=== PATIENT | female | born 1945 | race American Indian/Alaskan Native ===

== ENCOUNTER 2018-01-14 20:25 | Inpatient (IN) | payer MEDICARE, OTHER ==
[2018-01-14 20:54] VITALS: BMI 31.9
--- NOTE | 2018-01-14 21:02 | ED PDOC ---
Arrival/HPI - General Chief Complaint: Lower Extremity Problem/Injury Time Seen by Provider: 01/14/18 20:35 Historian: Patient - History of Present Illness Narrative History of Present Illness (Text): 01/14/18 21:01 Estephania Sanchez is a 72 year old female, whose past medical history includes dyslipidemia, hypertension, chronic kidney disease, and chronic lower extremity ulcers, who presents to the Emergency department accompanied by daughter complaining of worsening lower extremity pain. Patient states she has been experiencing bilatera lower extremity pain and swelling for the past few days. Patient notes worsening of her chronic lower extremity ulcers to her bilateral lower extremities, left greater than right. Patient denies any fever, chills, chest pain, shortness of breath, nausea, vomiting, headache, dizziness, or any other complaints. Time/Duration: < week Symptom Onset: Gradual Symptom Course: Worsening Activities at Onset: Light Context: Home Past Medical History - Provider Review Nursing Documentation Reviewed: Yes - Infectious Disease Hx of Infectious Diseases: None - Cardiac Hx Hypertension: Yes Other/Comment: venous stasis - Neurological HX Cerebrovascular Accident: Yes (1994) - Integumentary Hx Dermatological Disorder: Yes (right le leg ulcers) Other/Comment: chronic rle swelling weeping edema leg wounds -- seen by dr shah -- supposed to have appt on 01/15/2018 - Musculoskeletal/Rheumatological Hx Falls: (2 years ago needs right hip replacement) - Genitourinary/Gynecological Hx Incontinence: Yes (urgency from diuretic wears diaper) - Psychiatric Hx Psychophysiologic Disorder: No Hx Anxiety: No Hx Bipolar Disorder: No Hx Depression: No Hx Emotional Abuse: No Hx Hallucinations: No Hx Panic Disorder: No Hx Post Traumatic Stress Disorder: No Hx Psychosis: No Hx Physical Abuse: No Hx Schizophrenia: No Hx Sexual Abuse: No Hx Substance Use: No - Surgical History Hx Orthopedic Surgery: Yes - Anesthesia Hx Anesthesia: Yes Hx Anesthesia Reactions: No Hx Malignant Hyperthermia: No - Suicidal Assessment Feels Threatened In Home Enviroment: No Family/Social History - Physician Review Nursing Documentation Reviewed: Yes Family/Social History: Unknown Family HX Smoking Status: Never Smoked Hx Alcohol Use: No Hx Substance Use: No Allergies/Home Meds Allergies/Adverse Reactions: Allergies Penicillins Allergy (Verified 12/06/15 15:57) ANAPHYLAXIS Home Medications: Home Meds Medication Instructions Recorded Confirmed Losartan [Cozaar] 1 tab PO DAILY 01/14/18 01/14/18 Lovastatin [Altoprev] 1 tab PO HS 01/14/18 01/14/18 amLODIPine [Norvasc] 1 tab PO DAILY 01/14/18 01/14/18 Review of Systems - Physician Review All systems were reviewed & negative as marked: Yes - Review of Systems Constitutional: Normal. absent: Fevers Eyes: Normal ENT: Normal Respiratory: Normal. absent: SOB, Cough Cardiovascular: Normal. absent: Chest Pain Gastrointestinal: Normal. absent: Abdominal Pain, Diarrhea, Nausea, Vomiting Genitourinary Female: Normal. absent: Dysuria, Frequency, Urine Output Changes Musculoskeletal: Normal. absent: Back Pain, Neck Pain Skin: Cellulitis (+worsening lower extremity ulcers). absent: Rash Neurological: Normal. absent: Headache, Dizziness Endocrine: Normal Hemo/Lymphatic: Normal Psychiatric: Normal Physical Exam Vital Signs Reviewed: Yes Temperature: Afebrile Blood Pressure: Normal Pulse: Regular Respiratory Rate: Normal Appearance: Positive for: Well-Appearing, Non-Toxic, Comfortable Pain Distress: None Mental Status: Positive for: Alert and Oriented X 3 - Systems Exam Head: Present: Atraumatic, Normocephalic Pupils: Present: PERRL Extroacular Muscles: Present: EOMI Conjunctiva: Present: Normal Mouth: Present: Moist Mucous Membranes Neck: Present: Normal Range of Motion Respiratory/Chest: Present: Clear to Auscultation, Good Air Exchange. No: Respiratory Distress, Accessory Muscle Use Cardiovascular: Present: Regular Rate and Rhythm, Normal S1, S2. No: Murmurs Abdomen: No: Tenderness, Distention, Peritoneal Signs Back: Present: Normal Inspection Upper Extremity: Present: Normal Inspection. No: Cyanosis, Edema Lower Extremity: Present: Other (Chronic bilateral lower extremity ulcers, left greater than right. Cellulitis to left lower leg.). No: Edema Neurological: Present: GCS=15, CN II-XII Intact, Speech Normal Skin: Present: Warm, Dry, Normal Color. No: Rashes Psychiatric: Present: Alert, Oriented x 3, Normal Insight, Normal Concentration Medical Decision Making ED Course and Treatment: 01/14/18 21:01 Impression: 72 year old female complaining of bilateral lower extremity swelling/pain. Plan: -- Labs, blood cultures -- Tramadol -- Reassess and disposition Prior Visits: Notes and results from previous visits were reviewed. Progress Notes: 01/14/18 23:[address] Clay, who is aware and agrees with plan. Accepts pt in to his service. Pt will go to [facility] observation for left leg cellulitis. 01/15/18 00:38 Reviewed EKG, sinus bradycardia at 58 bpm[address] Non-specific ST/T wave changes. 01/15/18 02:20 Chest X-ray reviewed, shows no acute processes. - Lab Interpretations I have reviewed the lab results: Yes - RAD Interpretation Personnel Monitor: ED Physician - EKG Interpretation Interpreted by ED Physician: Yes Type: 12 lead EKG - Scribe Statement The provider has reviewed the documentation as recorded by the Scribe Kavitha Bliss Provider Scribe Attestation: All medical record entries made by the Scribe were at my direction and personally dictated by me. I have reviewed the chart and agree that the record accurately reflects my personal performance of the history, physical exam, medical decision making, and the department course for this patient. I have also personally directed, reviewed, and agree with the discharge instructions and disposition. Disposition/Present on Arrival - Present on Arrival Any Indicators Present on Arrival: No History of DVT/PE: No History of Uncontrolled Diabetes: No Urinary Catheter: No History of Decub. Ulcer: No History Surgical Site Infection Following: None - Disposition Have Diagnosis and Disposition been Completed?: Yes Diagnosis: Cellulitis of left anterior lower leg Disposition: HOSPITALIZED Disposition Time: 23:00 Condition: GOOD
[2018-01-14] MEDS ORDERED: TraMADol/Apap 37.5/325 mg Tab PO STA (21:05)
[2018-01-14 22:40] LABS: BASO # 0.02 K/mm3 (0.0-2.0); BASO % 0.3 % (0.0-3.0); EOS # 0.1 (0.0-0.7); EOS % 1.3 % (1.5-5.0); GRAN # 5.43 (1.4-6.5); GRAN % 68.6 % (50.0-68.0); HEMOGLOBIN 10.2 g/dL (12.0-16.0); LYMPH # 1.6 (1.2-3.4); LYMPH % 20.7 % (22.0-35.0); MEAN CELL VOLUME 78.3 fl (80.0-105.0); MEAN CORPUSCULAR HEMOGLOBIN 25.8 pg (25.0-35.0); MEAN CORPUSCULAR HGB CONC 32.9 g/dl (31.0-37.0); MEAN PLATELET VOLUME 9.3 fl (7.0-11.0); MONO # 0.7 (0.1-0.6); MONO % 9.1 % (1.0-6.0); RBC 3.96 10^6/uL (3.5-6.1); RED CELL DISTRIBUTION WIDTH 15.2 % (11.5-14.5); WHITE BLOOD COUNT 7.9 10^3/ul (4.5-11.0)
[2018-01-14 22:43] LABS: ALB/GLOB RATIO 0.9 (1.1-1.8); ALBUMIN 3.8 g/dL (3.0-4.8)
[2018-01-15] MEDS ORDERED: Vancomycin 1gm in NS 250ml 1 GM/250 ML BAG IVPB STA (00:15)
[2018-01-15] MEDS ORDERED: Pneumococcal 23-Valent Vaccine IM ONE (08:19)
[2018-01-15] MEDS ORDERED: Influenza Vaccine 60 mcg/0.5 mL SYR (4YR UP) IM ONE (08:19)
[2018-01-15] MEDS: Sodium Chloride 0.45% 1,000 ML IV SCH (08:46)
[2018-01-15 09:49] LABS: ALB/GLOB RATIO 0.9 (1.1-1.8); ALBUMIN 3.5 g/dL (3.0-4.8); CALCIUM 9.6 mg/dL (8.4-10.5)
--- NOTE | 2018-01-15 10:12 | RAD ---
Date of service: 01/15/2018 HISTORY: admit COMPARISON: No prior. FINDINGS: 11/07/2014 LUNGS: The lungs are well inflated and clear. PLEURA: No pleural effusions or pneumothorax. CARDIOVASCULAR: The heart is normal in size. No aortic atherosclerotic calcification present. OSSEOUS STRUCTURES: Within normal limits for the patient's age. VISUALIZED UPPER ABDOMEN: Normal. OTHER FINDINGS: None. IMPRESSION: No active pulmonary disease.
[2018-01-15] MEDS ORDERED: Clindamycin 600mg/50ml D5W 600 MG/50 ML VIAL IVPB SCH (10:30)
--- NOTE | 2018-01-15 11:00 | CARD ---
APPROVED REPORT Date of service: 01/15/2018 EKG Measurement Heart [id number] <Conclusion> Sinus bradycardia Septal infarct, old LVH NSSTW changes No change
[2018-01-15] MEDS: TraMADol/Apap 37.5/325 mg Tab PO PRN ×2 (11:42→21:26)
--- NOTE | 2018-01-15 12:51 | CP.PCM.CON ---
History of Present Illness - History of Present Illness History of Present Illness: Podiatry consult note for Dr. Aguilar/Dr Babin 72 year old female, whose past medical history includes dyslipidemia, hypertension, chronic kidney disease, and chronic lower extremity ulcers, see at bedside worsening lower extremity pain and ulcers . Patient states she has been experiencing bilateral lower extremity pain and swelling for the past few days. Patient notes worsening of her chronic lower extremity ulcers to her bilateral lower extremities, left greater than right. Patient denies any fever, chills, chest pain, shortness of breath, nausea, vomiting, headache, dizziness, or any other complaints. Past Patient History - Infectious Disease Hx of Infectious Diseases: None - Past Social History Smoking Status: Never Smoked - CARDIAC Hx Hypertension: Yes Other/Comment: venous stasis - NEUROLOGICAL HX Cerebrovascular Accident: Yes (1994) - INTEGUMENTARY Hx Dermatological Problems: Yes (right le leg ulcers) Other/Comment: chronic rle swelling weeping edema leg wounds -- seen by dr aguilar -- supposed to have appt on 01/15/2018 - MUSCULOSKELETAL/RHEUMATOLOGICAL Hx Falls: No - GENITOURINARY/GYNECOLOGICAL Hx Incontinence: Yes (urgency from diuretic wears diaper) - PSYCHIATRIC Hx Psychophysiologic Disorder: No Hx Anxiety: No Hx Bipolar Disorder: No Hx Depression: No Hx Emotional Abuse: No Hx Hallucinations: No Hx Panic Symptoms: No Hx Post Traumatic Stress Disorder: No Hx Psychosis: No Hx Physical Abuse: No Hx Schizophrenia: No Hx Sexual Abuse: No Hx Substance Use: No - SURGICAL HISTORY Hx Orthopedic Surgery: Yes - ANESTHESIA Hx Anesthesia: Yes Hx Anesthesia Reactions: No Hx Malignant Hyperthermia: No Meds Allergies/Adverse Reactions: Allergies Allergy/AdvReac Type Severity Reaction Status Date / Time Penicillins Allergy ANAPHYLAXIS Verified 12/06/15 15:57 - Medications Medications: Current Medications Acetaminophen (Tylenol 325mg Tab) 650 mg PO Q4H PRN PRN Reason: Pain, Mild (1-3) Amlodipine Besylate (Norvasc) 10 mg PO DAILY REMA Last Admin: 01/15/18 09:23 Dose: 10 mg Doxycycline Hyclate (Doryx) 100 mg PO Q12 REMA; Protocol Stop: 01/24/18 22:01 Furosemide (Lasix) 20 mg IVP DAILY REMA Last Admin: 01/15/18 11:39 Dose: 20 mg Sodium Chloride (Sodium Chloride 0.45%) 1,000 mls @ 40 mls/hr IV .Q24H REMA Last Admin: 01/15/18 08:46 Dose: 40 mls/hr Meropenem (Merrem Iv 1 Gm Premix) 1 gm in 50 mls @ 12.5 mls/hr IVPB Q12 REMA; Protocol Stop: 01/24/18 22:01 Losartan Potassium (Cozaar) 25 mg PO DAILY REMA Last Admin: 01/15/18 09:20 Dose: 25 mg Non-Formulary Medication (Lovastatin [Altoprev]) 1 tab PO HS REMA Tramadol/Acetaminophen (Ultracet 37.5/325 Mg) 1 tab PO Q6H PRN PRN Reason: Pain, moderate (4-7) Last Admin: 01/15/18 11:42 Dose: 1 tab Physical Exam - Constitutional Appears: Well, Non-toxic, No Acute Distress - Head Exam Head Exam: ATRAUMATIC, NORMOCEPHALIC - Extremities Exam Additional comments: Bilateral lower extremity exam: Vascular: dp/pt pulses are palpable b/l, CFT <3 secs x10, TG warm to warm, pitting edema pretibial +2, no erythema noted derm: left: ulcer noted on the medial aspect of the distal leg with firogranular base, no malodor, moderate active serous drainage, no probe to bone or tendon, no tracking or tunneling noted, no clinical signs of infection right: ulcer noted on the medial aspect of the distal leg with fibrogranular base, no malodor, mild active serous drainage, no probe to bone or tendon, no clical signs of infection no other open lesions noted neuro: grossly intact ortho: pain on palpation to the lower extremity L>R Results - Vital Signs Recent Vital Signs: Last Vital Signs Temp 97.6 F 01/15/18 06:00 Pulse 60 01/15/18 09:20 Resp 18 01/15/18 06:00 BP 144/68 01/15/18 11:39 Pulse Ox 99 01/15/18 06:00 - Labs Result Diagrams: 01/14/18 22:05 01/15/18 09:00 Labs: Laboratory Results - last 24 hr 01/14/18 01/14/18 01/15/18 22:05 22:05 09:00 WBC 7.9 D RBC 3.96 Hgb 10.2 L Hct 31.0 L MCV 78.3 L D MCH 25.8 MCHC 32.9 RDW 15.2 H Plt Count 356 MPV 9.3 Gran % 68.6 H Lymph % (Auto) 20.7 L Bartholomew % (Auto) 9.1 H Eos % (Auto) 1.3 L Baso % (Auto) 0.3 Gran # 5.43 Lymph # (Auto) 1.6 Bartholomew # (Auto) 0.7 H Eos # (Auto) 0.1 Baso # (Auto) 0.02 Sodium 139 140 Potassium 4.0 4.2 Chloride 104 106 Carbon Dioxide 25 26 Anion Gap 14 11 BUN 39 H 28 H Creatinine 2.0 H 1.5 H Est GFR ( Amer) 29 41 Est GFR (Non-Af Amer) 24 34 Random Glucose 113 H 135 H Calcium 10.0 9.6 Total Bilirubin 0.4 0.5 AST 48 H 35 ALT 19 14 Alkaline Phosphatase 155 H 117 Total Protein 7.9 7.4 Albumin 3.8 3.5 Globulin 4.1 4.0 Albumin/Globulin Ratio 0.9 L 0.9 L Assessment & Plan - Assessment and Plan (Free Text) Assessment: 72 yo female seen at bedside for venous insufficiency and weeping ulcers on bilateral legs. Plan: patient seen and evaluated alongside Dr. Aguilar chart, labs and vitals reviewed; afebrile and absent leukocytosis bilateral legs dressed with xeroform, DSD and MADALYN wraps with moderate compression Patient to keep b/l LE elevated at all times Venous ultrasound ordered; no DVT arterial ultrasound ordered; pending Wound cultures taken from the left lower extremity ID recs appreciated Thank you for the consult multipodus boots ordered podiatry will continue to monitor the patient while in house
--- NOTE | 2018-01-15 15:01 | US ---
PROCEDURE: Lower extremity NILDA exam HISTORY: Peripheral vascular disease with pain and ulceration PHYSICIAN(S): Cortes Tian MD. FINDINGS: The resting NILDA's are normal: right, 1.11and left, 1.04. The brachial systolic pressures are symmetric. The low thigh pressures and waveforms are relatively normal. The calf PVR waveforms augment normally. No significant gradients are noted across the thighs. The ankle and metatarsal waveforms are relatively normal and symmetric. No significant pressure gradients are noted across the lower legs. IMPRESSION: 1. Relatively normal NILDA and PVR examination at rest.
[2018-01-15] MEDS: LOVASTATIN PO SCH (21:20)
[2018-01-15] MEDS: Meropenem IV 1 gm in NS 1 GM/50 ML BAG IVPB SCH (21:20)
[2018-01-16 07:09] LABS: HEMOGLOBIN 9.5 g/dL (12.0-16.0); MEAN CELL VOLUME 79.6 fl (80.0-105.0); MEAN CORPUSCULAR HEMOGLOBIN 24.9 pg (25.0-35.0); MEAN CORPUSCULAR HGB CONC 31.3 g/dl (31.0-37.0); MEAN PLATELET VOLUME 8.9 fl (7.0-11.0); RBC 3.82 10^6/uL (3.5-6.1); RED CELL DISTRIBUTION WIDTH 15.6 % (11.5-14.5); WHITE BLOOD COUNT 6.8 10^3/uL (4.5-11.0)
[2018-01-16 07:54] LABS: ALB/GLOB RATIO 0.8 (1.1-1.8); ALBUMIN 3.2 g/dL (3.0-4.8); CALCIUM 9.4 mg/dL (8.4-10.5)
--- NOTE | 2018-01-16 09:03 | CON ---
DATE: 01/15/2018 CHIEF COMPLAINT: Left ankle erythema and ulcer times several days. HISTORY OF PRESENT ILLNESS This is a 72-year-old female with past medical history of high cholesterol, coronary artery disease, kidney disease, chronic lower extremity ulcers who was admitted with diagnosis of left leg cellulitis. The patient also had a cerebrovascular accident in 1994, hyperlipidemia, and hypertension. PAST MEDICAL HISTORY: Significant for hypertension, high cholesterol, kidney disease, cerebrovascular accident, and chronic lower extremity ulcers. PAST SURGICAL HISTORY: Significant for orthopedic surgery. ALLERGIES: THE PATIENT IS ALLERGIC TO PENICILLIN, TYPE OF ALLERGY IS NOT CLEAR. MEDICATIONS AT HOME: Include lovastatin, amlodipine, losartan. REVIEW OF SYSTEM: Reveals 12-point review systems is performed. No fever, no chills. There is mild shortness of breath. No cough. No hemoptysis. No abdominal pain, diarrhea, or constipation. No dysuria or frequency. No headaches and no blurred vision. PHYSICAL EXAMINATION: VITAL SIGNS: Temperature is 98, blood pressure is 150/70, respiratory rate of 18, heart rate of 56. HEENT: Unremarkable. NECK: Supple. LUNGS: Decreased breath sounds. HEART: Normal S1, S2. ABDOMEN: Soft and nontender. No organomegaly. No rebound. No guarding. No masses. EXTREMITIES: On examination of the leg, there is significant ulcer and erythema, purulent discharge. LABORATORY EXAMINATION: Reveals a white count of 7.9, hemoglobin of 10, platelets of 356. BUN of 29, creatinine of 2. The patient has had creatinine of 2 in 2014. Alk phos is elevated. Microbiology from previous admissions shows ESBL, E. coli, and corynebacterium from the left leg; and sensitive E. Coli. The ESBL was from 04/2017. Prior to that, she had sensitive E. Coli, and she also had pseudomonas, sensitive to Cipro and cefepime in 2016. The patient had a chest x-ray which is negative. History and physical examination is not available but the emergency room chart is available. ASSESSMENT AND PLAN: This is a 72-year-old female with hypertension, and cerebrovascular accident in 1994, high cholesterol, kidney disease presenting with a left ankle cellulitis with acute kidney injury. THE PATIENT IS ALLERGIC TO PENICILLIN. We will treat the patient with meropenem. Type of penicillin allergy is not type 1, she is not quite sure what type she has. She believes that she had diarrhea. We will start 1 g intravenous every 12 hours of meropenem for methicillin-resistant Staphylococcus aureus coverage or hesitant to use vancomycin because of the creatinine of 2, unable to use Zyvox because of the use of tramadol for pain. The patient was not on tramadol at home. We will add p.o. doxycycline at this time for emergency coverage. Wound cultures pending. Should have imaging to rule out underlying osteomyelitis. Should have sed rate, C-reactive protein, wound culture, imaging and arterial studies. She should be placed on an Extended Spectrum Beta-Lactamase precautions. Boogie Patel MD
--- NOTE | 2018-01-16 09:21 | HP ---
HISTORY OF PRESENT ILLNESS: I was called to the emergency room last night to admit Estephania Sanchez to the hospital. She is a very sweet female, 72 years old. PAST MEDICAL HISTORY: Dyslipidemia, hypertension, chronic kidney disease, chronic lower extremity ulcers for which she has been seeing a different mechatronics technologist in the outpatient for many years. She wanted a different mechatronics technologist and she tells me the ulcers are getting worse on both legs and also oozing and has much more pain, difficult for her to walk. She also has some swelling in the legs and they looked to me a little bit inflamed with oozing into the bandages. This is a worsening of a failed outpatient treatment with recent care by the mechatronics technologist. She has venous stasis, hypertension, she had CVA in 1994, she had right and left lower extremity leg ulcers, they are weeping and they are oozing and now, she wants to see Dr. Agiular. She has an appointment actually for today, but now she is in the hospital. Two years ago she had a right hip replacement, she has urgency, she wears a diaper, that is because of the diuretic. FAMILY HISTORY: Unknown family history. SOCIAL HISTORY: Never smoked. No alcohol. No drugs. ALLERGIES: SHE HAS ALLERGIES TO PENICILLIN. MEDICATIONS: She is on Cozaar, lovastatin and Norvasc. She has hypertension, high cholesterol. REVIEW OF SYSTEMS: No fevers. No acute vision or hearing changes. No shortness of breath or cough. No chest pain or palpitations. No nausea, vomiting, constipation or diarrhea. No abdominal pain. She eats well as well. She has increasing urination from the diuresis from the edema. I do not see water pill on her list and the legs are little puffy, I will add something. No muscular pain in the back of leg, but both the legs are very tender. It starts with any motion, even of the bandages to look underneath, very bad pain in both the lower extremities. She has cellulitis, worsening lower extremity ulcers. She was on antibiotics and treatment on the outpatient it did not work, it is getting worse. She was supposed to see Dr. Aguilar today in the outpatient, will call in to see her in the hospital. No headaches or dizziness. No anxiety or depression. PHYSICAL EXAMINATION VITAL SIGNS: She has a 98.1 temperature, 157/80 blood pressure, 67 pulse, 18 respiratory rate and 98% O2 sat on room air. HEENT: Her head is atraumatic and normocephalic. Extraocular muscles are intact. Pupils equal reactive to light. Throat is moist. GENERAL: She is well appearing, nontoxic, comfortable in bed. When the legs are touched, she is very miserable and in pain. Alert and oriented x3. NECK: Supple. HEART: Regular rate. Normal S1, S2. LUNGS: Decreased breath sounds. Poor effort, but clear to auscultation. No wheezes, rhonchi or rales. ABDOMEN: Soft and nontender. Positive bowel sounds. No guarding. No rebound. EXTREMITIES: There is some edema of the lower extremity trace to a +1 in the ankles. Also both lower extremity ulcers are bilateral oozing into the bandages. If you touch the bandage, she is extremely painful. Just the touch of the leg, she is very painful. It has gotten worse, she said over the past week despite treatment. NEUROLOGIC: Cranial nerves II through XII grossly intact. Speech is normal. Skin is poor in both lower extremities with ulcers and oozing. Alert and oriented x3. LYMPHATICS: Thyroid midline. No palpable appreciable lymphadenopathy. LABORATORY DATA: She had a bunch of tests. She has a 139 sodium, potassium 4, BUN 39, creatinine 2.0. I will put on some IV fluids, although she does have some edema. From time to time, I will give her a little bit of hydrochlorothiazide or Lasix. Sugar was 113, total bili is 0.4, AST is 48, ALT is 19, alk phos 155, total protein 7.9. White count 7.9, hemoglobin 10.2 and 31 hematocrit with 356 platelets. There is a chest x-ray pending. She will have consults with Infectious Disease and podiatry. She should be on her medications and IV fluids for the kidney function, I will give her little bit of Lasix IV 20 mg daily for the swelling and she has a worsening leg ulcers and cellulitis with failed outpatient treatment and we will see what Infectious Disease and Podiatry has to say today. I am going to change her to an inpatient. She was put in as an and I do not foresee her being able to be discharged in 24 hours. She will get a dose of vancomycin and she was given Ultracet for pain, I will continue that. She had a dose of Lasix 20 once in the emergency room, I will continue that also. Trevon Clay DO MTDD
--- NOTE | 2018-01-16 10:19 | PN ---
DATE: 01/16/2018 SUBJECTIVE: I saw her resting comfortably in bed. She is in isolation for ESBL. Her legs are bandaged nicely. She tells me she is feeling a little bit better overall. She has a little bit of an appetite. I would like to get her out of bed to chair, she understands that. She is currently on Cozaar, Doryx, Lasix, lovastatin, Merrem IV, Norvasc, IV fluids, Tylenol, and Ultracet for pain. PHYSICAL EXAMINATION: VITAL SIGNS: She has a 98.1 temp; 57 pulse; 160/68 blood pressure, little high, she was 146/68 yesterday, we will keep an eye on that; 18 respiratory rate; 96% on room air. HEENT: Head is atraumatic, normocephalic. HEART: Regular rate. LUNGS: Clear to auscultation. ABDOMEN: Soft, nontender. Positive bowel sounds. EXTREMITIES: Both are bandaged. She tells me she is feeling better, which is nice. LABORATORY DATA: She has a 6.8 white count, 9.5 hemoglobin, 30.4 hematocrit with a 329 platelets. Sodium 140; potassium is 4; BUN is 24 and creatinine 1.4, better than when she came in, she had 39 and 2, it is down to 24 and 1.4, so I think the acute kidney injury is improving; GFR is up to 37; sugar is 82, better; calcium is at 9.4. Total bili is 0.4, AST is 33, ALT is 20, alk phos 114, total protein is 6.9. ASSESSMENT AND PLAN: We will continue with aggressive treatment and care, skin care, podiatry care, infectious disease, antibiotics. We will check her labs tomorrow, get her out of bed to chair. She has got bilateral leg wounds with oozing. Trevon Clay DO
--- NOTE | 2018-01-16 10:43 | CP.PCM.PN ---
<Lisa Jean - Last Filed: 01/16/18 12:21> Subjective - Date & Time of Evaluation Date of Evaluation: 01/16/18 Time of Evaluation: 10:40 - Subjective Subjective: Podiatry progress note for Dr. Aguilar/Dr Babin 72 year old female, whose past medical history includes dyslipidemia, hypertension, chronic kidney disease, and chronic lower extremity ulcers, seen at bedside worsening lower extremity pain and ulcers . Patient states she has been experiencing bilateral lower extremity pain and swelling for the past few days. patient states the pain is a lot better today. States the left dressing was just changed because she felt like it was too tight. Patient denies any fever, chills, chest pain, shortness of breath, nausea, vomiting, headache, dizziness, or any other complaints. Objective - Vital Signs/Intake and Output Vital Signs (last 24 hours): Temp Pulse Resp BP Pulse Ox 98.1 F 57 L 18 160/68 H 96 01/16/18 06:00 01/16/18 06:00 01/16/18 06:00 01/16/18 06:00 01/16/18 06:00 Intake and Output: 01/16/18 01/16/18 06:59 18:59 Intake Total 480 Balance 480 - Medications Medications: Current Medications Acetaminophen (Tylenol 325mg Tab) 650 mg PO Q4H PRN PRN Reason: Pain, Mild (1-3) Amlodipine Besylate (Norvasc) 10 mg PO DAILY [facility] Last Admin: 01/15/18 09:23 Dose: 10 mg Doxycycline Hyclate (Doryx) 100 mg PO Q12 [facility]; Protocol Stop: 01/24/18 22:01 Last Admin: 01/15/18 21:19 Dose: 100 mg Furosemide (Lasix) 20 mg IVP DAILY [facility] Last Admin: 01/15/18 11:39 Dose: 20 mg Sodium Chloride (Sodium Chloride 0.45%) 1,000 mls @ 40 mls/hr IV .Q24H [facility] Last Admin: 01/15/18 08:46 Dose: 40 mls/hr Meropenem (Merrem Iv 1 Gm Premix) 1 gm in 50 mls @ 12.5 mls/hr IVPB Q12 [facility]; Protocol Stop: 01/24/18 22:01 Last Admin: 01/15/18 21:20 Dose: 12.5 mls/hr Losartan Potassium (Cozaar) 25 mg PO DAILY [facility] Last Admin: 01/15/18 09:20 Dose: 25 mg Non-Formulary Medication (Lovastatin [Altoprev]) 1 tab PO HS [facility] Last Admin: 01/15/18 21:20 Dose: Not Given Oxycodone/Acetaminophen (Percocet 5/325 Mg Tab) 1 tab PO Q6H PRN PRN Reason: Pain, severe (8-10) Stop: 01/19/18 09:50 - Labs Labs: 01/16/18 06:30 01/16/18 06:30 - Constitutional Appears: Well, Non-toxic - Extremities Exam Additional comments: Dressing clean, dry and intact from previous note: Bilateral lower extremity exam: Vascular: dp/pt pulses are palpable b/l, CFT <3 secs x10, TG warm to warm, pitting edema pretibial +2, no erythema noted derm: left: ulcer noted on the medial aspect of the distal leg with firogranular base, no malodor, moderate active serous drainage, no probe to bone or tendon, no tracking or tunneling noted, no clinical signs of infection right: ulcer noted on the medial aspect of the distal leg with fibrogranular base, no malodor, mild active serous drainage, no probe to bone or tendon, no clical signs of infection no other open lesions noted neuro: grossly intact ortho: pain on palpation to the lower extremity L>R - Neurological Exam Neurological Exam: Alert, Awake, Oriented x3 - Psychiatric Exam Psychiatric exam: Normal Affect - Skin Skin Exam: Normal Color Assessment and Plan - Assessment and Plan (Free Text) Assessment: 72 yo female seen at bedside for venous insufficiency and weeping ulcers on bilateral legs. Plan: patient seen and evaluated alongside Dr. Aguilar chart, labs and vitals reviewed; afebrile and absent leukocytosis bilateral legs to be dressed with xeroform, DSD and MADALYN wraps with moderate compression Patient to keep b/l LE elevated at all times Venous ultrasound ordered; no DVT arterial ultrasound ordered; NILDA/PVR normal at rest Wound cultures taken from the left lower extremity; gram negative peri ID recs appreciated multipodus boots ordered podiatry will continue to monitor the patient while in house <Volodymyr Babin - Last Filed: 01/16/18 15:10> Objective - Vital Signs/Intake and Output Vital Signs (last 24 hours): Temp Pulse Resp BP Pulse Ox 97.9 F 52 L 18 128/61 97 01/16/18 14:00 01/16/18 14:00 01/16/18 14:00 01/16/18 14:00 01/16/18 14:00 Intake and Output: 01/16/18 01/16/18 06:59 18:59 Intake Total 480 Balance 480 - Medications Medications: Current Medications Acetaminophen (Tylenol 325mg Tab) 650 mg PO Q4H PRN PRN Reason: Pain, Mild (1-3) Amlodipine Besylate (Norvasc) 10 mg PO DAILY [facility] Last Admin: 01/16/18 11:05 Dose: 10 mg Doxycycline Hyclate (Doryx) 100 mg PO Q12 [facility]; Protocol Stop: 01/24/18 22:01 Last Admin: 01/16/18 11:05 Dose: 100 mg Furosemide (Lasix) 20 mg IVP DAILY [facility] Last Admin: 01/16/18 11:06 Dose: 20 mg Sodium Chloride (Sodium Chloride 0.45%) 1,000 mls @ 40 mls/hr IV .Q24H [facility] Last Admin: 01/16/18 11:44 Dose: 40 mls/hr Meropenem (Merrem Iv 1 Gm Premix) 1 gm in 50 mls @ 12.5 mls/hr IVPB Q12 [facility]; Protocol Stop: 01/24/18 22:01 Last Admin: 01/16/18 11:04 Dose: 12.5 mls/hr Losartan Potassium (Cozaar) 25 mg PO DAILY [facility] Last Admin: 01/16/18 11:06 Dose: Not Given Non-Formulary Medication (Lovastatin [Altoprev]) 1 tab PO HS [facility] Last Admin: 01/15/18 21:20 Dose: Not Given Oxycodone/Acetaminophen (Percocet 5/325 Mg Tab) 1 tab PO Q6H PRN PRN Reason: Pain, severe (8-10) Stop: 01/19/18 09:50 Last Admin: 01/16/18 11:07 Dose: 1 tab - Labs Labs: 01/16/18 06:30 01/16/18 06:30 Attending/Attestation - Attestation I have personally seen and examined this patient.: Yes I have fully participated in the care of the patient.: Yes I have reviewed all pertinent clinical information, including history, physical exam and plan: Yes
[2018-01-16] MEDS: Meropenem IV 1 gm in NS 1 GM/50 ML BAG IVPB SCH ×2 (11:04→22:21)
[2018-01-16] MEDS: Oxycodone/Acetaminophen 5/325 mg Tab PO PRN ×2 (11:07→20:44)
[2018-01-16] MEDS: Sodium Chloride 0.45% 1,000 ML IV SCH (11:44)
--- NOTE | 2018-01-16 16:16 | PN ---
DATE: 01/16/2018 SUBJECTIVE: The patient is seen earlier this morning. She is still complaining of pain in her extremity. No fevers. No chills. Otherwise, she sedates on a vent from night. PHYSICAL EXAMINATION: VITAL SIGNS: Temperature is 98, blood pressure 160/80, respiratory rate 18. HEENT: Unremarkable. NECK: Supple. LUNGS: Have decreased breath sounds. HEART: Normal S1 and S2. ABDOMEN: Soft, nontender. LABORATORY DATA: White count 6.8, hemoglobin 9, platelets 329. BUN 24, creatinine down to 1.4. Microbiology reveals a gram-negative peri and leg culture with light growth, but no organism seen on the gram stain. The blood cultures are negative 24 hours. No gram stain available at this time. ASSESSMENT AND PLAN: A 72-year-old female with hypertension, cerebrovascular accident in 1994, high cholesterol, kidney disease with left ankle cellulitis and acute kidney injury with ALLERGY TO PENICILLIN with a gram-negative peri, left ankle cellulitis, on meropenem at this time and doxycycline, awaiting for identification sensitivity, check on the AVR results and relatively normal NILDA and tolerate MRI, order a bone scan to rule out underlying osteomyelitis. Boogie Patel MD
[2018-01-16] MEDS: LOVASTATIN PO SCH (22:21)
[2018-01-17 07:51] LABS: HEMOGLOBIN 10.4 g/dL (12.0-16.0); MEAN CELL VOLUME 78.8 fl (80.0-105.0); MEAN CORPUSCULAR HGB CONC 31.7 g/dl (31.0-37.0); RBC 4.16 10^6/uL (3.5-6.1); RED CELL DISTRIBUTION WIDTH 15.2 % (11.5-14.5); WHITE BLOOD COUNT 5.8 10^3/uL (4.5-11.0)
[2018-01-17 08:47] LABS: ALB/GLOB RATIO 0.9 (1.1-1.8); ALBUMIN 3.3 g/dL (3.0-4.8); CALCIUM 9.8 mg/dL (8.4-10.5)
--- NOTE | 2018-01-17 08:50 | CP.PCM.PN ---
<Mamadou Parikh - Last Filed: 01/17/18 08:48> Subjective - Date & Time of Evaluation Date of Evaluation: 01/17/18 Time of Evaluation: 08:48 - Subjective Subjective: Podiatry progress note for Dr. Aguilar/Dr Babin 72 year old female, whose past medical history includes dyslipidemia, hypertension, chronic kidney disease, and chronic lower extremity ulcers, seen at bedside worsening lower extremity pain and ulcers . Patient states she has been experiencing bilateral lower extremity pain and swelling for the past few days. patient states the pain is a lot better today. States left leg is much more sensitive than right and she hasn't had problems with dressing as was laid down gently when last changed. Patient denies any fever, chills, chest pain, shortness of breath, nausea, vomiting, headache, dizziness, or any other complaints. Objective - Vital Signs/Intake and Output Vital Signs (last 24 hours): Temp Pulse Resp BP Pulse Ox 97.6 F 58 L 18 147/70 98 01/17/18 06:00 01/17/18 06:00 01/17/18 06:00 01/17/18 06:00 01/17/18 06:00 Intake and Output: 01/17/18 01/17/18 06:59 18:59 Intake Total 1460 Balance 1460 - Medications Medications: Current Medications Acetaminophen (Tylenol 325mg Tab) 650 mg PO Q4H PRN PRN Reason: Pain, Mild (1-3) Amlodipine Besylate (Norvasc) 10 mg PO DAILY [facility] Last Admin: 01/16/18 11:05 Dose: 10 mg Doxycycline Hyclate (Doryx) 100 mg PO Q12 [facility]; Protocol Stop: 01/24/18 22:01 Last Admin: 01/16/18 22:22 Dose: 100 mg Furosemide (Lasix) 20 mg IVP DAILY [facility] Last Admin: 01/16/18 11:06 Dose: 20 mg Sodium Chloride (Sodium Chloride 0.45%) 1,000 mls @ 40 mls/hr IV .Q24H [facility] Last Admin: 01/16/18 11:44 Dose: 40 mls/hr Meropenem (Merrem Iv 1 Gm Premix) 1 gm in 50 mls @ 12.5 mls/hr IVPB Q12 [facility]; Protocol Stop: 01/24/18 22:01 Last Admin: 01/16/18 22:21 Dose: 12.5 mls/hr Losartan Potassium (Cozaar) 25 mg PO DAILY [facility] Last Admin: 01/16/18 11:06 Dose: Not Given Non-Formulary Medication (Lovastatin [Altoprev]) 1 tab PO HS [facility] Last Admin: 01/16/18 22:21 Dose: Not Given Oxycodone/Acetaminophen (Percocet 5/325 Mg Tab) 1 tab PO Q6H PRN PRN Reason: Pain, severe (8-10) Stop: 01/19/18 09:50 Last Admin: 01/16/18 20:44 Dose: 1 tab - Labs Labs: 01/17/18 06:45 01/17/18 06:45 - Constitutional Appears: Well, Non-toxic, No Acute Distress - Head Exam Head Exam: ATRAUMATIC, NORMOCEPHALIC - Extremities Exam Additional comments: Bilateral lower extremity exam: Vascular: dp/pt pulses are palpable b/l, CFT <3 secs x10, TG warm to warm, pitting edema pretibial +2, no erythema noted derm: left: ulcer noted on the medial aspect of the distal leg with firogranular base, no malodor, moderate active serous drainage, no probe to bone or tendon, no tracking or tunneling noted, no clinical signs of infection right: ulcer noted on the medial aspect of the distal leg with fibrogranular base, no malodor, mild active serous drainage, no probe to bone or tendon, no clical signs of infection no other open lesions noted neuro: grossly intact ortho: pain on palpation to the lower extremity L>R - Neurological Exam Neurological Exam: Alert, Awake, Oriented x3 - Psychiatric Exam Psychiatric exam: Normal Affect, Normal Mood Assessment and Plan - Assessment and Plan (Free Text) Assessment: 72 yo female seen at bedside for venous insufficiency and weeping ulcers on bilateral legs. Plan: patient seen and evaluated at bedside with Dr. Babin chart, labs and vitals reviewed; afebrile and absent leukocytosis bilateral legs to be dressed with xeroform, DSD and MADALYN wraps with moderate compression Patient to keep b/l LE elevated at all times Venous ultrasound ordered; no DVT arterial ultrasound ordered; NILDA/PVR normal at rest Wound cultures taken from the left lower extremity; gram negative peri ID recs appreciated multipodus boots ordered podiatry will continue to monitor the patient while in house <Volodymyr Babin - Last Filed: 01/20/18 12:19> Objective - Vital Signs/Intake and Output Vital Signs (last 24 hours): Temp Pulse Resp BP Pulse Ox 97.5 F L 60 18 156/62 H 97 01/19/18 08:04 01/19/18 11:03 01/19/18 08:04 01/19/18 11:03 01/19/18 08:04 - Labs Labs: 01/19/18 06:15 01/19/18 06:15 Attending/Attestation - Attestation I have personally seen and examined this patient.: Yes I have fully participated in the care of the patient.: Yes I have reviewed all pertinent clinical information, including history, physical exam and plan: Yes
[2018-01-17] MEDS: Meropenem IV 1 gm in NS 1 GM/50 ML BAG IVPB SCH ×2 (10:40→21:38)
--- NOTE | 2018-01-17 12:12 | PN ---
DATE: 01/17/2018 SUBJECTIVE: The patient is in bed in no acute distress, nontoxic. PHYSICAL EXAMINATION: VITAL SIGNS: Temperature is 97, blood pressure is 140/70, respiratory rate of 18. HEENT: Examination of HEENT is unremarkable. NECK: Supple. LUNGS: Have decreased breath sounds. HEART: Normal S1, S2. ABDOMEN: Soft. LABORATORY EXAMINATION: Reveals a white count is 5.8, hemoglobin of 10, platelets of 331, BUN of 25, creatinine of 1.3. Microbiology reveals leg culture is Pseudomonas aeruginosa, sensitive to amikacin, sensitive to cefepime and meropenem and Zosyn and resistant to Cipro. The patient had an ultrasound which is normal ABIs and at rest, has arterial Dopplers and review of orders reveals the patient's MRIs have been ordered and pending and the patient is currently on meropenem. ASSESSMENT AND PLAN: A 72-year-old female with hypertension, cerebrovascular accident in 1994, high cholesterol, kidney disease with Pseudomonas left ankle cellulitis and currently on meropenem day #3. If the MRI is negative for osteomyelitis, would complete 5-7 days. If the MRI is positive, obviously will need 4-6 weeks of antibiotics. We will order a sed rate and C-reactive protein and we will follow with you. We will discontinue the doxycycline and continue with meropenem day #3. Boogie Patel MD
[2018-01-17] MEDS: Oxycodone/Acetaminophen 5/325 mg Tab PO PRN ×2 (15:51→21:48)
--- NOTE | 2018-01-17 16:56 | PN ---
DATE: 01/17/2018 SUBJECTIVE: She is resting comfortably in bed. Her legs are wrapped up. When they are not moving, she is okay. She is being seen with Infectious Disease and Podiatry. She is on IV fluids, Cozaar, Lasix, lovastatin, Merrem IV, Norvasc, oxycodone, and Tylenol. PHYSICAL EXAMINATION: VITAL SIGNS: She has a 97.6 temp, 58 pulse, 147/70 blood pressure, 18 respiratory rate, and 98% O2 sat on room air. HEENT: Head is atraumatic, normocephalic. HEART: Regular rate. LUNGS: Clear to auscultation. ABDOMEN: Soft, nontender. Positive bowel sounds. EXTREMITIES: Still wrapped up from cellulitis. LABORATORY DATA: She has 141 sodium, potassium is 4, BUN 25, creatinine 1.3, GFR is 40, sugar is 81, calcium is 9.8, total bili is 0.4, AST is 56, ALT is 18, alk phos 115, total protein 7.1. She has a 5.8 white count, 10.4 hemoglobin, 32.8 hematocrit, and 331 platelets. She has Pseudomonas aeruginosa in gram strain. ASSESSMENT AND PLAN: She has seen by Podiatry and Infectious Disease. MRI is ordered, not done yet. We will check her labs tomorrow, out of bed to chair, physical therapy. Intravenous antibiotics as per Infectious Disease. Trevon Clay DO
[2018-01-17] MEDS: Sodium Chloride 0.45% 1,000 ML IV SCH (21:39)
[2018-01-17] MEDS: LOVASTATIN PO SCH (21:39)
[2018-01-18] MEDS: Sodium Chloride 0.45% 1,000 ML IV SCH (02:09)
--- NOTE | 2018-01-18 03:01 | CP.PCM.PN ---
Subjective - Date & Time of Evaluation Date of Evaluation: 01/16/18 Time of Evaluation: 20:00 - Subjective Subjective: # 22 angiocath was inserted in right hand dorsum. Objective - Vital Signs/Intake and Output Vital Signs (last 24 hours): Temp Pulse Resp BP Pulse Ox 97.4 F L 58 L 18 143/66 97 01/17/18 14:00 01/17/18 14:00 01/17/18 14:00 01/17/18 14:00 01/17/18 14:00 - Medications Medications: Current Medications Acetaminophen (Tylenol 325mg Tab) 650 mg PO Q4H PRN PRN Reason: Pain, Mild (1-3) Amlodipine Besylate (Norvasc) 10 mg PO DAILY [facility] Last Admin: 01/17/18 10:39 Dose: 10 mg Furosemide (Lasix) 20 mg IVP DAILY [facility] Last Admin: 01/17/18 10:40 Dose: 20 mg Sodium Chloride (Sodium Chloride 0.45%) 1,000 mls @ 40 mls/hr IV .Q24H [facility] Last Admin: 01/18/18 02:09 Dose: Not Given Meropenem (Merrem Iv 1 Gm Premix) 1 gm in 50 mls @ 12.5 mls/hr IVPB Q12 [facility]; Protocol Stop: 01/24/18 22:01 Last Admin: 01/17/18 21:38 Dose: 12.5 mls/hr Losartan Potassium (Cozaar) 25 mg PO DAILY [facility] Last Admin: 01/17/18 10:41 Dose: 25 mg Non-Formulary Medication (Lovastatin [Altoprev]) 1 tab PO HS [facility] Last Admin: 01/17/18 21:39 Dose: Not Given Oxycodone/Acetaminophen (Percocet 5/325 Mg Tab) 1 tab PO Q6H PRN PRN Reason: Pain, severe (8-10) Stop: 01/19/18 09:50 Last Admin: 01/17/18 21:48 Dose: 1 tab - Labs Labs: 01/17/18 06:45 01/17/18 06:45
[2018-01-18 07:48] LABS: HEMOGLOBIN 10.1 g/dL (12.0-16.0); MEAN CELL VOLUME 79.1 fl (80.0-105.0); MEAN CORPUSCULAR HEMOGLOBIN 24.9 pg (25.0-35.0); MEAN CORPUSCULAR HGB CONC 31.5 g/dl (31.0-37.0); MEAN PLATELET VOLUME 8.9 fl (7.0-11.0); RBC 4.06 10^6/uL (3.5-6.1); RED CELL DISTRIBUTION WIDTH 15.3 % (11.5-14.5)
[2018-01-18 08:11] LABS: ALB/GLOB RATIO 0.9 (1.1-1.8); ALBUMIN 3.2 g/dL (3.0-4.8); CALCIUM 9.9 mg/dL (8.4-10.5)
[2018-01-18] MEDS: Oxycodone/Acetaminophen 5/325 mg Tab PO PRN ×2 (09:39→17:50)
[2018-01-18] MEDS: Meropenem IV 1 gm in NS 1 GM/50 ML BAG IVPB SCH ×2 (09:40→22:41)
--- NOTE | 2018-01-18 10:59 | PN ---
DATE: 01/18/2018 SUBJECTIVE: I saw her resting comfortably in bed. She is in a lot of pain in both lower extremities, they come and go, the pain. They are also slowly healing, it is not fast enough for her. MEDICATIONS: She is on IV fluids, losartan, Lasix IV, lovastatin, Merrem IV, Norvasc, oxycodone for pain and Tylenol. PHYSICAL EXAMINATION: VITAL SIGNS: She has a 98.4 temp, 57 pulse, 147/69 blood pressure, 20 respiratory rate, 97% O2 sat on room air. HEENT: Head is atraumatic, normocephalic. HEART: Regular rate. LUNGS: Decreased breath sounds, but clear. ABDOMEN: Soft. EXTREMITIES: No edema. I am going to wrap it up with bilateral leg cellulitis. She has a Pseudomonas. She should be in isolation. LABORATORY DATA: She has a 6 white count, 10.1 hemoglobin, 32.1 hematocrit with 369 platelets, 140 sodium, potassium 4.1, BUN 25, creatinine 1.4, GFR is 37, sugar is 82, calcium is 9.9, total bili is 0.5, AST is 42, ALT is 16, alk phos 108. C-reactive protein is very high at 60.2. Total protein is 6.6. ASSESSMENT AND PLAN: She is being seen by Infectious Disease and Podiatry. The plan is to transfer her to the Transitional Care Unit today and hopefully she will go there today. Continue treatment for the legs and IV antibiotics. She has bilateral cellulitis, acute kidney injury and Pseudomonas infection. Trevon Clay DO
--- NOTE | 2018-01-18 12:48 | PN ---
DATE: 01/18/2018 The patient is in bed, seen earlier today in 564, no acute distress, nontoxic. No fevers and chills. PHYSICAL EXAMINATION: Temperature is 98, blood pressure is 140/60, respiratory rate of 18. Examination of HEENT is unremarkable. Neck is supple. Lungs have decreased breath sounds. Heart exam is normal S1, S2. Abdominal examination is soft. LABORATORY EXAMINATION: Reveals a white count of 6, hemoglobin of 10. Sed rate is 108, BUN of 25, creatinine of 1.4. Microbiology reveals Pseudomonas in leg culture. Review of orders reveals the meropenem to be active. ASSESSMENT AND PLAN: This is a 72-year-old female with hypertension, cerebrovascular accident, high cholesterol, kidney disease, and Pseudomonas left ankle cellulitis, on meropenem day #4, would complete 5-7 days of antibiotics if it is a cellulitis. MRI of the lower extremities is pending. If the MRI is positive for osteomyelitis, he will need 4-6 weeks of antibiotics with weekly sed rate, C-reactive protein, CBC and SMA-18. Boogie Patel MD
[2018-01-18] MEDS: LOVASTATIN PO SCH (22:51)
[2018-01-19 07:17] LABS: HEMOGLOBIN 9.6 g/dL (12.0-16.0); MEAN CELL VOLUME 79.2 fl (80.0-105.0); MEAN CORPUSCULAR HEMOGLOBIN 24.6 pg (25.0-35.0); MEAN CORPUSCULAR HGB CONC 31.1 g/dl (31.0-37.0); MEAN PLATELET VOLUME 8.8 fl (7.0-11.0); RBC 3.9 10^6/uL (3.5-6.1); RED CELL DISTRIBUTION WIDTH 15.6 % (11.5-14.5); WHITE BLOOD COUNT 5.7 10^3/uL (4.5-11.0)
[2018-01-19 08:05] VITALS: RESP 18; TEMP 97.5; O2SAT 97
[2018-01-19 08:24] LABS: ALBUMIN 2.9 g/dL (3.0-4.8); CALCIUM 9.7 mg/dL (8.4-10.5)
[2018-01-19 08:25] LABS: ALB/GLOB RATIO 0.8 (1.1-1.8)
[2018-01-19] MEDS: Meropenem IV 1 gm in NS 1 GM/50 ML BAG IVPB SCH (10:39)
--- NOTE | 2018-01-19 10:57 | PN ---
DATE: 01/19/2018 SUBJECTIVE: The patient is in bed, in no acute distress, nontoxic. PHYSICAL EXAMINATION: VITAL SIGNS: Temperature is 98, blood pressure is 140/60, respiratory rate of 18. HEENT: Unremarkable. NECK: Supple. HEART: Normal S1, S2. LUNGS: Have decreased breath sounds. ABDOMEN: Soft. LABORATORY EXAMINATION: Reveals a white count of 5.7, hemoglobin of 9, platelets of 258. Chemistries are noted. Microbiology is noted with a Pseudomonas. ASSESSMENT AND PLAN: A 72-year-old female with hypertension, cerebrovascular accident, high cholesterol, kidney disease, pseudomonas left ankle cellulitis, on meropenem day #5, we would recommend 5 to 7 days of antibiotics if the MRI of the lower extremities is negative for osteomyelitis and if it is positive, at least 4 to 6 weeks. MRI results are pending. Boogie Patel MD
--- NOTE | 2018-01-19 10:59 | CP.PCM.PN ---
Subjective - Date & Time of Evaluation Date of Evaluation: 01/19/18 Time of Evaluation: 10:56 - Subjective Subjective: podiatry progress note for Dr. Aguilar/Dr Babin 72 year old female, whose past medical history includes dyslipidemia, hypertension, chronic kidney disease, and chronic lower extremity ulcers, seen at bedside worsening lower extremity pain and ulcers . States has extreme pain to the left. No pain on the right lower extremity Patient denies any fever, chills, chest pain, shortness of breath, nausea, vomiting, headache, dizziness, or any other complaints Objective - Vital Signs/Intake and Output Vital Signs (last 24 hours): Temp Pulse Resp BP Pulse Ox 97.5 F L 54 L 18 141/68 97 01/19/18 08:04 01/19/18 08:04 01/19/18 08:04 01/19/18 08:04 01/19/18 08:04 - Medications Medications: Current Medications Acetaminophen (Tylenol 325mg Tab) 650 mg PO Q4H PRN PRN Reason: Pain, Mild (1-3) Amlodipine Besylate (Norvasc) 10 mg PO DAILY [facility] Last Admin: 01/18/18 09:39 Dose: 10 mg Furosemide (Lasix) 20 mg IVP DAILY [facility] Last Admin: 01/18/18 09:40 Dose: 20 mg Sodium Chloride (Sodium Chloride 0.45%) 1,000 mls @ 40 mls/hr IV .Q24H [facility] Last Admin: 01/18/18 02:09 Dose: Not Given Meropenem (Merrem Iv 1 Gm Premix) 1 gm in 50 mls @ 12.5 mls/hr IVPB Q12 [facility]; Protocol Stop: 01/24/18 22:01 Last Admin: 01/18/18 22:41 Dose: 12.5 mls/hr Losartan Potassium (Cozaar) 25 mg PO DAILY [facility] Last Admin: 01/18/18 09:40 Dose: 25 mg Non-Formulary Medication (Lovastatin [Altoprev]) 1 tab PO HS [facility] Last Admin: 01/18/18 22:51 Dose: Not Given - Labs Labs: 01/19/18 06:15 01/19/18 06:15 - Constitutional Appears: Well, Non-toxic, No Acute Distress - Head Exam Head Exam: ATRAUMATIC, NORMOCEPHALIC - Extremities Exam Additional comments: Bilateral lower extremity exam: Vascular: dp/pt pulses are palpable b/l, CFT <3 secs x10, TG warm to warm, pitting edema pretibial +2, no erythema noted derm: left: superficial ulcer noted on the medial aspect of the distal leg with fibrogranular base, no malodor, moderate active serous drainage, no probe to bone or tendon, no tracking or tunneling noted, no clinical signs of infection right: superficial ulcer noted on the medial aspect of the distal leg with fibrogranular base, no malodor, mild active serous drainage, no probe to bone or tendon, no clical signs of infection no other open lesions noted neuro: grossly intact ortho: pain on palpation to the lower extremity L>R - Neurological Exam Neurological Exam: Alert, Normal Gait - Psychiatric Exam Psychiatric exam: Normal Affect - Skin Skin Exam: Normal Color Assessment and Plan - Assessment and Plan (Free Text) Assessment: 72 yo female seen at bedside for venous insufficiency and weeping ulcers on bilateral legs. Plan: patient seen and evaluated at bedside with Dr. Babin chart, labs and vitals reviewed; afebrile and absent leukocytosis bilateral legs to be dressed with xeroform, DSD and MADALYN wraps with minimal compression Patient to keep b/l LE elevated at all times Venous ultrasound ordered; no DVT arterial ultrasound ordered; NILDA/PVR normal at rest Wound cultures taken from the left lower extremity; pseudomonas aeruginas ID recs appreciated multipodus boots ordered podiatry will continue to monitor the patient while in house
[2018-01-19 11:03] VITALS: BP 156/62; PULSE 60
[2018-01-19] MEDS ORDERED: Unna Boot TOP ONE (12:53)
--- NOTE | 2018-01-19 13:08 | PN ---
DATE: 01/19/2018 SUBJECTIVE: I was prepared to sent her to the TCU yesterday, but because the MRI of the lower extremities is not back yet from the 01/16/2018 with the report, I cannot send her there not knowing the length of time. She is going to need for IV antibiotics that is what Dr. Patel is waiting for. Otherwise she is comfortable in bed. PHYSICAL EXAMINATION: VITAL SIGNS: She has a 97.5 temp, 54 pulse, 141/68 blood pressure, 18 respiratory rate, 97% O2 sat on room air. HEENT: Head is atraumatic, normocephalic. HEART: Regular rate. LUNGS: Decreased breath sounds, but clear. ABDOMEN: Soft. EXTREMITIES: Both were wrapped. LABORATORY DATA: She has a 5.7 white count, 9.6 hemoglobin, 30.9 hematocrit with 358 platelets. Sodium 140, potassium 4.1, BUN 26, creatinine 1.4, GFR 37, calcium 9.7, sugar is 85. AST is 32, ALT is 19, alk phos 111, total protein 6.5. ASSESSMENT AND PLAN: She has Pseudomonas aeruginosa. Awaiting for Infectious Disease to let me know if it is TCU with short term antibiotics or it is [facility] with a PICC line and care home antibiotics. Awaiting for MRI results. Not sure why they are not back, it has been 3 days. Has bilateral cellulitis of the lower extremities, acute kidney injury with Pseudomonas infection. Trevon Clay DO
--- NOTE | 2018-01-19 13:17 | MRI ---
Date of service: 01/18/2018 PROCEDURE: MRI of the right lower extremity without contrast HISTORY: chronic lower leg ulcer r/o osteo COMPARISON: TECHNIQUE: MRI of the right lower extremity was performed in multiple planes using multiple pulse sequences FINDINGS: The study shows no marrow edema to suggest osteomyelitis. There is skin thickening distally around the ankle. There is no discrete abscess. No significant subcutaneous edema. The report concurs with the preliminary [facility] report IMPRESSION: No evidence of osteomyelitis
--- NOTE | 2018-01-19 13:25 | MRI ---
Date of service: 01/18/2018 PROCEDURE: MRI of the left leg HISTORY: chronic lower leg ulcer r/o osteo COMPARISON: MRI of the right leg same day TECHNIQUE: MRI of the left leg was performed in multiple planes using multiple pulse sequences. FINDINGS: There is circumferential skin thickening near the ankle. There is no discrete fluid collection. There is no marrow edema to suggest osteomyelitis. The report concurs with the preliminary [facility] report IMPRESSION: No evidence of osteomyelitis
== END 2018-01-19 12:07 | DRG 603 ==
LOC: ED 20:25 → ERH 01-15 00:14 → 5RNO 01-15 02:26 → OBSVTOIN 01-15 23:14
PROVIDERS: ADMIT Family Medicine; ATTEND Family Medicine
DX: L03.116 Cellulitis of left lower limb (principal); L97.329 Non-pressure chronic ulcer of left ankle with unspecified severity; N17.9 Acute kidney failure, unspecified; E78.5 Hyperlipidemia, unspecified; M79.605 Pain in left leg; M79.604 Pain in right leg; Z86.73 Personal history of transient ischemic attack (TIA), and cerebral infarction without residual deficits; I87.2 Venous insufficiency (chronic) (peripheral); B96.5 Pseudomonas (aeruginosa) (mallei) (pseudomallei) as the cause of diseases classified elsewhere; E78.00 Pure hypercholesterolemia, unspecified; I25.10 Atherosclerotic heart disease of native coronary artery without angina pectoris; I12.9 Hypertensive chronic kidney disease with stage 1 through stage 4 chronic kidney disease, or unspecified chronic kidney disease; I87.8 Other specified disorders of veins; L03.115 Cellulitis of right lower limb; N18.9 Chronic kidney disease, unspecified; Z88.0 Allergy status to penicillin; Z96.641 Presence of right artificial hip joint

== ENCOUNTER 2018-01-19 12:12 | Inpatient (IN) | payer OTHER ==
[2018-01-19 12:33] VITALS: BMI 29.9
[2018-01-19] MEDS ORDERED: Sodium Chloride 0.45% 1,000 ML IV SCH (12:45)
[2018-01-19] MEDS ORDERED: Unna Boot TOP ONE (13:15)
[2018-01-19] MEDS ORDERED: Meropenem IV 1 gm in NS 1 GM/50 ML BAG IVPB SCH (22:00)
[2018-01-19] MEDS ORDERED: LOVASTATIN PO SCH (22:00)
[2018-01-19] MEDS ORDERED: Influenza Vaccine 60 mcg/0.5 mL SYR (4YR UP) IM ONE (22:20)
[2018-01-19] MEDS ORDERED: Pneumococcal 23-Valent Vaccine IM ONE (22:20)
[2018-01-20 07:09] LABS: HEMOGLOBIN 10.7 g/dL (12.0-16.0); MEAN CELL VOLUME 79.1 fl (80.0-105.0); MEAN CORPUSCULAR HEMOGLOBIN 25.1 pg (25.0-35.0); MEAN CORPUSCULAR HGB CONC 31.8 g/dl (31.0-37.0); MEAN PLATELET VOLUME 8.8 fl (7.0-11.0); RBC 4.26 10^6/uL (3.5-6.1); RED CELL DISTRIBUTION WIDTH 15.7 % (11.5-14.5)
[2018-01-20 07:24] LABS: ALB/GLOB RATIO 0.9 (1.1-1.8); ALBUMIN 3.4 g/dL (3.0-4.8); CALCIUM 10.4 mg/dL (8.4-10.5)
[2018-01-20] MEDS ORDERED: Unna Boot TOP ONE (10:20)
--- NOTE | 2018-01-20 12:05 | HP ---
HISTORY OF PRESENT ILLNESS: She was in the [facility] side and she was transferred over to the TCU, so I am doing admission to the TCU. She is a nice 72-year-old female who has an issue with her legs with cellulitis, edema and ulcers, also acute kidney injury and Pseudomonas. Now, she is on TCU for physical therapy and IV antibiotics. PAST MEDICAL HISTORY: She has a past medical history of high cholesterol, hypertension, chronic kidney disease, chronic lower extremity ulcers. 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 This did not go away, it was getting worse, came to the hospital, started on IV antibiotics. She is being seen by the geothermal operating engineer and Infectious Disease doctor on IV antibiotics. FAMILY HISTORY: Unknown. SOCIAL HISTORY: Never smoked. No alcohol. No drugs. ALLERGIES: SHE IS ALLERGIC TO PENICILLIN. MEDICATIONS: She is on Cozaar, lovastatin, Norvasc. REVIEW OF SYSTEMS: She is in bed, a little bit weak, needs physical therapy, also the legs hurt her a little bit. No fevers at this time. No acute vision or hearing changes. No shortness of breath or cough. No chest pain or palpitations. No nausea, vomiting, constipation or diarrhea. No abdominal pain. She eats okay of food. Urination is on and off depending on the edema of the lower extremities. She is on a water pill. She has pain in both legs and also ulcer. PHYSICAL EXAMINATION: VITAL SIGNS: Temperature 98.1, up to 51 pulse, 167/80 blood pressure, 18 respiratory rate and 97% O2 sat on room air. HEENT: Head is atraumatic and normocephalic. Throat is moist. NECK: Supple. HEART: Regular rate. LUNGS: Decreased breath sounds and clear to auscultation. ABDOMEN: Soft and nontender. Positive bowel sounds. EXTREMITIES: Bilateral lower extremity swelling and redness, ulcers and trace edema in bilateral lower extremities. LYMPHS: Thyroid midline. No palpable appreciable lymphadenopathy. NEUROLOGIC: Alert and oriented x3. Cranial nerves II-XII are grossly intact. LABORATORY DATA: Blood tests: She has 142 sodium, potassium is 3.9, BUN 25, creatinine 1.1, GFR is 49, sugar is 91. Calcium is 10.4, total bili is 0.3, AST is 39, ALT is 69, alk phos 127, total protein 7.3, albumin is 3.4. White count 6, hemoglobin 10.7, hematocrit 33.7, platelets of 384. She will have consults with Podiatry and Infectious Disease of test tomorrow. Will continue with aggressive treatment and care. She is currently on Merrem IV. She will get tramadol for pain, Tylenol, Norvasc, Lasix and Cozaar. Continue aggressive treatment and care for bilateral lower extremity ulcer and cellulitis. The MRI was negative for osteomyelitis and she needs physical therapy. Trevon Clay DO MTDLila
[2018-01-20] MEDS: Meropenem IV 1 gm in NS 1 GM/50 ML BAG IVPB SCH ×2 (14:25→21:17)
--- NOTE | 2018-01-20 15:43 | US ---
HISTORY: Leg pain and swelling. Evaluate for DVT PHYSICIAN(S): Cortes Tian MD. TECHNIQUE: Duplex sonography and color-flow Doppler with graded compression were used to evaluate the deep venous systems of both lower extremities. The tibial veins are not evaluated due to bandages FINDINGS: The visualized deep venous systems of both lower extremities are sonographically normal and compressible. Normal wave forms and augmentation are seen. There is no sonographic evidence for deep venous thrombosis in the visualized segments of both lower extremities. IMPRESSION: No sonographic evidence for deep venous thrombosis in the visualized segments of both lower extremities. Limited study. The tibial veins were not evaluated
[2018-01-20] MEDS ORDERED: Meropenem IV 1 gm in NS 1 GM/50 ML BAG IVPB SCH (18:00)
--- NOTE | 2018-01-20 23:13 | CON ---
DATE: 01/20/2018 LOCATION: Patient is seen in room 316. CHIEF COMPLAINT: Weakness times several days. HISTORY OF PRESENT ILLNESS: This is a 72-year-old female with past medical history of kidney disease, high cholesterol, coronary artery disease, hypertension, hyperlipidemia and admitted with chronic lower extremity ulcer and was ALLERGIC TO PENICILLIN, TYPE OF ALLERGY IS NOT CLEAR NOW. She is transferred to Transitional Care for further care. No fevers. No chills. No nausea. No vomiting. No chest pain. REVIEW OF SYSTEMS: A 14-point review of systems is performed. PAST MEDICAL HISTORY: Significant for high cholesterol, kidney disease, coronary artery disease, and hypertension. PAST SURGICAL HISTORY: Significant for orthopedic surgery and the patient also had a cerebrovascular accident in 1994. ALLERGIES: THE PATIENT HAS ALLERGIES TO PENICILLIN, TYPE OF ALLERGY IS NOT ENTIRELY CLEAR. MEDICATIONS AT HOME: Norvasc, Cozaar and lovastatin. PHYSICAL EXAMINATION GENERAL: The patient is in bed, in no acute distress. VITAL SIGNS: Temperature of 98, blood pressure is 160/70, respiratory rate of 18, heart rate of 51. HEENT: Examination of HEENT is unremarkable. NECK: Supple. LUNGS: Have decreased breath sounds. HEART: Normal S1, S2. ABDOMEN: Soft and nontender. EXTREMITIES: Leg is much improved. LABORATORY EXAMINATION: Reveals blood cultures are negative. Wound culture is Pseudomonas, which is resistant to Cipro, sensitive to piperacillin, tazobactam and meropenem. The patient also had an MRI of the lower extremities. No evidence of osteomyelitis. ASSESSMENT AND PLAN: This is a 72-year-old female with kidney disease, coronary artery disease, cerebrovascular accident, hypertension and now with Pseudomonas and left ankle cellulitis, day #6 of meropenem. The patient has had adequate therapy. Negative MRI. We would recommend 7 days of antibiotics, today is day #6 of meropenem. Local wound care. The patient is on 1 g every . We will complete 7 days, today is day #6 of 7 days of meropenem for Pseudomonas cellulitis. Boogie Patel MD
[2018-01-21] MEDS: Meropenem IV 1 gm in NS 1 GM/50 ML BAG IVPB SCH ×3 (05:26→22:10)
[2018-01-21 07:23] LABS: HEMOGLOBIN 10.1 g/dL (12.0-16.0); MEAN CELL VOLUME 79.3 fl (80.0-105.0); MEAN CORPUSCULAR HEMOGLOBIN 24.9 pg (25.0-35.0); MEAN CORPUSCULAR HGB CONC 31.4 g/dl (31.0-37.0); MEAN PLATELET VOLUME 8.9 fl (7.0-11.0); RBC 4.06 10^6/uL (3.5-6.1); RED CELL DISTRIBUTION WIDTH 15.7 % (11.5-14.5); WHITE BLOOD COUNT 6.1 10^3/uL (4.5-11.0)
[2018-01-21 07:30] LABS: ALB/GLOB RATIO 0.9 (1.1-1.8); ALBUMIN 3.4 g/dL (3.0-4.8); CALCIUM 10.1 mg/dL (8.4-10.5)
--- NOTE | 2018-01-21 10:05 | PN ---
DATE: 01/21/2018 SUBJECTIVE: I saw her in the Transitional Care Unit. She is actually doing much better this morning. She is alert, slept well, trying on physical therapy, taking her medications. She needs to get physical therapy and also continue the treatment for the bilateral cellulitis of the lower extremities and acute kidney injury and Pseudomonas. MEDICATIONS: She is on Cozaar, Lasix, Merrem IV, Norvasc, Tylenol and Ultram. PHYSICAL EXAMINATION: VITAL SIGNS; She has a 97.8 temp, 52 pulse, 144/72 blood pressure, 18 respiratory rate, 99% O2 sat on room air. HEENT: Head is atraumatic, normocephalic. HEART: Regular rate. LUNGS: Decreased breath sounds, but clear. ABDOMEN: Soft, nontender. Positive bowel sounds. EXTREMITIES: Both extremities are wrapped. Less tender. She is trying physical therapy. LABORATORY DATA: She has a 6.1 white count, 10.1 hemoglobin, 32.2 hematocrit with 369 platelets. 141 sodium, potassium 4.2, BUN is 31, creatinine 1.3. I encouraged her to drink more water. GFR is 40, sugar is 87, calcium is 10.1, total bili is 0.2, AST is 41, ALT is 18, alk phos 133, total protein is 7. ASSESSMENT AND PLAN: She is being seen by Infectious Disease. There was an ultrasound of the leg, which showed normal. We will continue as per Infectious Disease her IV antibiotics. I will continue with physical therapy and IV antibiotics. Trevon Clay DO
--- NOTE | 2018-01-21 10:36 | CP.PCM.PN ---
<Lisa Jean - Last Filed: 01/21/18 12:46> Subjective - Date & Time of Evaluation Date of Evaluation: 01/21/18 Time of Evaluation: 10:34 - Subjective Subjective: podiatry progress note for Dr. Aguilar/Dr Babin 72 year old female, whose past medical history includes dyslipidemia, hypertension, chronic kidney disease, and chronic lower extremity ulcers, seen at bedside worsening lower extremity pain and ulcers . States has extreme pain to the left. No pain on the right lower extremity Patient denies any fever, chills, chest pain, shortness of breath, nausea, vomiting, headache, dizziness, or any other complaint Objective - Vital Signs/Intake and Output Vital Signs (last 24 hours): Temp Pulse Resp BP Pulse Ox 97.9 F 60 16 140/65 96 01/21/18 08:47 01/21/18 09:07 01/21/18 08:47 01/21/18 09:07 01/21/18 08:47 - Medications Medications: Current Medications Acetaminophen (Tylenol 325mg Tab) 650 mg PO Q6H PRN; Protocol PRN Reason: Pain, Mild (1-3) Amlodipine Besylate (Norvasc) 10 mg PO DAILY REMA; Protocol Last Admin: 01/21/18 09:07 Dose: 10 mg Furosemide (Lasix) 20 mg IVP 0600 RMEA; Protocol Last Admin: 01/21/18 05:26 Dose: 20 mg Meropenem (Merrem Iv 1 Gm Premix) 1 gm in 50 mls @ 100 mls/hr IVPB Q8 REMA; Protocol Stop: 01/23/18 14:01 Last Admin: 01/21/18 05:26 Dose: 100 mls/hr Losartan Potassium (Cozaar) 25 mg PO DAILY REMA; Protocol Last Admin: 01/21/18 09:07 Dose: 25 mg Tramadol HCl (Ultram) 50 mg PO Q8 PRN; Protocol PRN Reason: Pain, severe (8-10) Last Admin: 01/20/18 22:10 Dose: 50 mg - Labs Labs: 01/21/18 06:30 01/21/18 06:30 - Constitutional Appears: Well, Non-toxic - Head Exam Head Exam: ATRAUMATIC - Extremities Exam Additional comments: Bilateral lower extremity exam: Vascular: dp/pt pulses are palpable b/l, CFT <3 secs x10, TG warm to warm, pitting edema pretibial +2, no erythema noted derm: left: superficial ulcer noted on the medial aspect of the distal leg with fibrogranular base, no malodor, moderate active serous drainage, no probe to bone or tendon, no tracking or tunneling noted, no clinical signs of infection right: superficial ulcer noted on the medial aspect of the distal leg with fibrogranular base, no malodor, mild active serous drainage, no probe to bone or tendon, no clical signs of infection no other open lesions noted neuro: grossly intact ortho: pain on palpation to the lower extremity L>R - Neurological Exam Neurological Exam: Alert, Normal Gait - Psychiatric Exam Psychiatric exam: Normal Affect - Skin Skin Exam: Normal Color Assessment and Plan - Assessment and Plan (Free Text) Assessment: 72 yo female seen at bedside for venous insufficiency and weeping ulcers on bilateral legs. Plan: patient seen and evaluated at bedside with Dr. Babin chart, labs and vitals reviewed; afebrile and absent leukocytosis bilateral legs dressed with unna boots and coban. Patient to keep b/l LE elevated at all times Venous ultrasound ordered; no DVT arterial ultrasound ordered; NILDA/PVR normal at rest Wound cultures taken from the left lower extremity; pseudomonas aeruginas ID recs appreciated; continue IV antibiotics multipodus boots ordered; to be worn while resting in bed Nails debrided x 10 using sterile nail nippers tolerated without any complications Patient stable for discharge: patient will follow up with Dr. Aguilar in wound care center within a week of discharge podiatry will continue to monitor the patient while in house <Pascale Aguilar - Last Filed: 01/24/18 13:59> Objective - Vital Signs/Intake and Output Vital Signs (last 24 hours): Temp Pulse Resp BP Pulse Ox 98.1 F 49 L 18 168/77 H 94 L 01/22/18 10:00 01/23/18 16:49 01/22/18 10:00 01/24/18 11:35 01/23/18 16:49 Intake and Output: 01/24/18 01/24/18 06:59 18:59 Intake Total 360 Balance 360 - Medications Medications: Current Medications Acetaminophen (Tylenol 325mg Tab) 650 mg PO Q6H PRN PRN Reason: Pain, moderate (4-7) Last Admin: 01/23/18 10:17 Dose: 650 mg Amlodipine Besylate (Norvasc) 10 mg PO DAILY REMA; Protocol Last Admin: 01/24/18 11:35 Dose: 10 mg Bandage/Support Products (Unna-Flex Elastic Unna Boot) 2 dev TOP ONCE ONE Stop: 01/25/18 12:51 - Labs Labs: 01/23/18 06:45 01/23/18 06:45 Attending/Attestation - Attestation I have personally seen and examined this patient.: Yes I have fully participated in the care of the patient.: Yes I have reviewed all pertinent clinical information, including history, physical exam and plan: Yes
--- NOTE | 2018-01-21 11:51 | PN ---
DATE: 01/21/2018 SUBJECTIVE: The patient is in bed in no acute distress and nontoxic. PHYSICAL EXAMINATION: VITAL SIGNS: Temperature is 98, blood pressure is 140/70, and respiratory rate 16. HEENT: Unremarkable. NECK: Supple. LUNGS: Have decreased breath sounds. HEART: Normal S1 and S2. ABDOMEN: Soft and nontender. LABORATORY DATA: Reveals a white count of 6.0, hemoglobin of 10, and platelets of 384. BUN of 25, creatinine of 1.1, AST is 39, and alk phos is 127. Microbiology is noted and with the left leg culture has Pseudomonas aeruginosa, resistant to Cipro, sensitive to meropenem, and sensitive to cefepime. MEDICATIONS: Review of orders reveals the patient to be on meropenem. ASSESSMENT AND PLAN: This is a 72-year-old female with kidney disease, coronary artery disease, cerebrovascular accident, hypertension with Pseudomonas in left ankle cellulitis, day #7 of antibiotics and we will discontinue the meropenem after today's last dose. The patient did have an MRI which was negative for osteomyelitis. Boogie Patel MD
[2018-01-22] MEDS: Meropenem IV 1 gm in NS 1 GM/50 ML BAG IVPB SCH (05:58)
--- NOTE | 2018-01-22 14:31 | PN ---
DATE: 01/22/2018 SUBJECTIVE: She is sitting out of bed to chair in the CCU. She is doing better. She has Unna boots on both the lower extremities by Podiatry. She is still on IV antibiotics by Infectious Disease. She is having bilateral lower extremity cellulitis with acute kidney injury and she also has Pseudomonas. PHYSICAL EXAMINATION: VITAL SIGNS: Temperature 98.1, 60 pulse, 130/62 blood pressure, 18 respiratory rate, and 97% O2 sat on room air. HEENT: Head: Atraumatic and normocephalic. HEART: Regular rate. LUNGS: Clear to auscultation. ABDOMEN: Soft and nontender. Positive bowel sounds. EXTREMITIES: Both wrapped up in Unna boots. She is walking better. MEDICATIONS: She is currently on Cozaar, Lasix, Merrem, Norvasc, Tylenol, Ultram, and Unna boot. LABORATORY DATA: She has 141 sodium, potassium 4.2, BUN 31, little high, creatinine 1.3, little high. GFR is 40. Sugar is 87, calcium is 10.1, total bili is 0.2, AST is 41, ALT is 18, alk phos 133. Total protein is 7. White count 6.1, hemoglobin 10.1, hematocrit 32.2, and platelets of 369. ASSESSMENT AND PLAN: Blood pressure is 130/62. I am going to put the losartan on hold and put tramadol on hold, and the Lasix on hold to see if it could help her kidney functions. We had always had her on if we have to start amlodipine 10 mg. We will keep an eye on her blood pressure. Trevon Clay DO
--- NOTE | 2018-01-22 15:30 | PN ---
DATE: 01/22/2018 SUBJECTIVE: The patient is in bed in no acute distress and nontoxic. PHYSICAL EXAMINATION: VITAL SIGNS: On exam, temperature is 98, blood pressure is 135/60, respiratory rate of 18 and heart rate of 60. HEENT: Unremarkable. NECK: Supple. LUNGS: Have decreased breath sounds. HEART: Exam normal S1 and S2. ABDOMEN: Soft and nontender. LABORATORY EXAMINATION: Reveals the patient's white count of 6.1 and hemoglobin of 10. BUN of 31 and creatinine of 1.3. MEDICATIONS: Review of orders reveals the patient to be on meropenem. ASSESSMENT AND PLAN: This is a 72-year-old female with kidney disease, coronary artery disease, cerebrovascular accident, hypertension, Pseudomonas in left ankle cellulitis day #8 with an MRI which is negative. We will discontinue the meropenem. No further antibiotics at this point. The leg is much improved. Continue local wound care. The patient is ambulating and and we will follow with you. Boogie Patel MD
[2018-01-23 07:19] LABS: HEMOGLOBIN 9.6 g/dL (12.0-16.0); MEAN CELL VOLUME 78.5 fl (80.0-105.0); MEAN CORPUSCULAR HEMOGLOBIN 24.6 pg (25.0-35.0); MEAN CORPUSCULAR HGB CONC 31.3 g/dl (31.0-37.0); MEAN PLATELET VOLUME 8.9 fl (7.0-11.0); RBC 3.91 10^6/uL (3.5-6.1); RED CELL DISTRIBUTION WIDTH 15.7 % (11.5-14.5)
[2018-01-23 07:36] LABS: ALB/GLOB RATIO 0.9 (1.1-1.8); ALBUMIN 3.2 g/dL (3.0-4.8); CALCIUM 9.7 mg/dL (8.4-10.5)
--- NOTE | 2018-01-23 14:18 | PN ---
DATE: 01/23/2018 SUBJECTIVE: I saw her in the Transitional Care Unit, resting comfortably in bed. Her legs are in an Unna boot by Podiatry. She is eating her breakfast well. She is doing better on physical therapy. She has multiple issues. She has pseudomonas in the left ankle, cellulitis. MRI was negative. Infectious Disease is now stopping Merrem. We are doing still wound care with an Unna boot from Podiatry and she needs physical therapy before she goes home, but she is improving. PHYSICAL EXAMINATION VITAL SIGNS: She has a 98.1 temp, 60 pulse, 130/62 blood pressure, 18 respiratory rate, 97% O2 sat on room air. HEENT: Head is atraumatic, normocephalic. HEART: Regular rate. LUNGS: Decreased breath sounds, but clear. ABDOMEN: Soft, nontender. Positive bowel sounds. EXTREMITIES: Both legs are in Unna boots and they are thin. MEDICATIONS: She is currently only on Norvasc, Tylenol and the Unna boot. LABORATORY DATA: She has a 6 white count, 9.6 hemoglobin, 30.7 hematocrit with 344 platelets. 139 sodium, potassium is 4, BUN is 40, creatinine 1.3, GFR is 40, sugar is 84, calcium is 9.7, total bili is 0.3, AST is 38, ALT is 20, alk phos 150, total protein 6.7. ASSESSMENT AND PLAN: We will continue with physical therapy. Discussed with nurses. Encouragement for getting out of bed to chair therapy and we will follow. Continue with physical therapy. Trevon Clay DO MTDD
--- NOTE | 2018-01-23 14:26 | PN ---
DATE: 01/23/2018 SUBJECTIVE: The patient seen earlier today, in no acute distress, nontoxic. No fever. Comfortable, uneventful night. PHYSICAL EXAMINATION: VITAL SIGNS: Temperature of 98, blood pressure is 120/60, respiratory rate of 18. HEENT: Examination of HEENT is unremarkable. NECK: Supple. LUNGS: Have decreased breath sounds. HEART: Normal S1, S2. ABDOMEN: Soft. LABORATORY DATA: Laboratory examination reveals a white count of 6, hemoglobin of 9, creatinine is 1.3. Microbiology is noted. ASSESSMENT AND PLAN: A 72-year-old female with kidney disease, coronary artery disease, cerebrovascular accident, hypertension, Pseudomonas in the left ankle, cellulitis and has completed the antibiotic therapy, now with a negative MRI for osteomyelitis. Continue local wound care, which is improved. Off of antibiotics. We will follow with you. Boogie Patel MD
--- NOTE | 2018-01-24 13:25 | PN ---
DATE: 01/24/2018 SUBJECTIVE: I saw her in her room in Transitional Care Unit. She is feeling better. She is off the antibiotics. She is on Norvasc, Tylenol, and Unna boots. She is eating well. She actually walks with a cane and little bit better than that when she came in, so I think the physical therapy is really benefiting her. PHYSICAL EXAMINATION: VITAL SIGNS: She has a 98.1 temp, 60 pulse, 130/62 blood pressure, 18 respiratory rate, 97% O2 sat on room air. HEENT: Head is atraumatic, normocephalic. HEART: Regular rate. LUNGS: Decreased breath sounds, but clear. ABDOMEN: Soft, nontender. Positive bowel sounds. EXTREMITIES: Got Unna boots on. ASSESSMENT AND PLAN: She is definitely improving. There was no lab for today. We will order lab for tomorrow. Check her kidney functions. She is being seen by Infectious Disease. She has few more days of physical therapy. She will hopefully go home on Friday. I believe that is the plan. We will check her labs tomorrow. Discussed at length with the nurse and answered questions from the patient and she had bilateral cellulitis, on Unna boots. She also a bit weak and she is improving. Trevon Clay DO
--- NOTE | 2018-01-24 15:08 | PN ---
DATE: 01/24/2018 SUBJECTIVE: The patient is in bed, in no acute distress, nontoxic. PHYSICAL EXAMINATION: VITAL SIGNS: Temperature is 98, blood pressure is 120/60, respiratory rate of 18. HEENT: Unremarkable. NECK: Supple. LUNGS: Have decreased breath sounds. HEART: Normal S1, S2. ABDOMINAL: Soft, nontender. LABORATORY EXAMINATIONS: Reviewed. White count of 6000. Microbiology is reviewed. Review of orders reveals the patient has completed antibiotics. Currently off of antibiotics. ASSESSMENT AND PLAN: A 72-year-old female who was seen early this morning at [facility] with kidney disease, coronary artery disease, cerebrovascular accident, hypertension with Pseudomonas, left ankle cellulitis has completed the antibiotics. MRI is negative for osteomyelitis and local wound care, off of antibiotics. The patient is at risk for developing nosocomial infections. Boogie Patel MD
[2018-01-25 08:08] LABS: HEMOGLOBIN 11.2 g/dL (12.0-16.0); MEAN CELL VOLUME 79.9 fl (80.0-105.0); MEAN CORPUSCULAR HGB CONC 31.3 g/dl (31.0-37.0); MEAN PLATELET VOLUME 9.4 fl (7.0-11.0); RBC 4.48 10^6/uL (3.5-6.1); RED CELL DISTRIBUTION WIDTH 15.6 % (11.5-14.5); WHITE BLOOD COUNT 6.4 10^3/uL (4.5-11.0)
[2018-01-25 09:13] LABS: ALBUMIN 3.7 g/dL (3.0-4.8); CALCIUM 10.7 mg/dL (8.4-10.5)
--- NOTE | 2018-01-25 10:22 | PN ---
DATE: 01/25/2018 SUBJECTIVE: She is doing very well on physical therapy. She is actively working out and I saw her there. She is happy. The plan is for discharge her tomorrow. She is on Norvasc, Tylenol and she has Unna boots on. PHYSICAL EXAMINATION: VITAL SIGNS: She has a 97.9 temp, 52 pulse, 158/76 blood pressure, 20 respiratory rate, 90% O2 sat on room air. GENERAL: She is laughing and having fun from physical therapy and working out. HEENT: Head is atraumatic, normocephalic. HEART: Regular rate. LUNGS: Clear to auscultation. ABDOMEN: Soft. EXTREMITIES: Thin with Unna boots. LABORATORY DATA: She has a 6.4 white count, 11.2 hemoglobin, 35.8 hematocrit with 346 platelets. 143 sodium, potassium 4.3, BUN 32, creatinine 1.1, the best it has been just about. GFR is 49, sugar is 90, calcium is 10.7, total bili is 0.4, AST is 30, ALT is 17, alk phos 28, total protein is 7.4. ASSESSMENT AND PLAN: The plan to discharge her tomorrow. She is being seen by Infectious Disease and Podiatry. She has improved. I will watch her overnight and discharge her tomorrow. She is in TCU, getting physical therapy before she goes home. She has Unna boots and both lower extremity cellulitis Trevon Clay DO MTDD
[2018-01-25] MEDS ORDERED: Unna Boot TOP ONE (12:50)
--- NOTE | 2018-01-25 14:57 | PN ---
DATE: 01/25/2018 SUBJECTIVE: The patient is in bed, in no acute distress, nontoxic. PHYSICAL EXAMINATION: VITAL SIGNS: On exam, temperature is 98, blood pressure is 120/70, respiratory rate of 16. HEENT: Examination of HEENT is unremarkable. NECK: Supple. LUNGS: Have decreased breath sounds. HEART: Normal S1, S2. ABDOMEN: Soft, nontender. LABORATORY DATA: Laboratory examination reveals a white count of 6.4, hemoglobin of 11, platelets of 346. Chemistries reveals a BUN of 32, creatinine of 1.1. Microbiology is noted. ASSESSMENT AND PLAN: A 72-year-old female who was seen earlier today with kidney disease and coronary artery disease, cerebrovascular accident, hypertension with Pseudomonas left ankle cellulitis, has completed the antibiotics. The patient has MRI is negative for osteomyelitis. The patient did have Pseudomonas in the left leg, now it is much improved, off of antibiotics, afebrile. The patient is scheduled for possible discharge in the a.m. She is at risk for developing nosocomial infection. This morning, I discussed with her about the care of her leg as far as wound care is concerned. Follow up with primary doctor. Boogie Patel MD
[2018-01-25 18:11] VITALS: PULSE 18; RESP 18; TEMP 97.7; O2SAT 96
[2018-01-26 10:19] VITALS: BP 170/84
--- NOTE | 2018-01-26 12:25 | PN ---
DATE: 01/26/2018 SUBJECTIVE: She is doing well. She is walking well. She is taking the medications well, Norvasc and she has legs in Unna boots with podiatry and she is doing much better. She feels much better. PHYSICAL EXAMINATION: VITAL SIGNS: A 97.9 temperature, pulse, 145/81 blood pressure, 18 respiratory rate and 96% O2 sat room air. HEENT: Head is atraumatic, normocephalic. HEART: Regular rate. LUNGS: Clear to auscultation. ABDOMEN: Soft. EXTREMITIES: No edema. They are in Unna boots and they have improved. ASSESSMENT AND PLAN: She had cellulitis, while she was here and she did well. She has improved. She will go home today. She will be followed up outpatient with primary care doctor. I discussed with infectious disease, she is off the antibiotics and she is doing very well. Trevon Clay DO MTDD
[2018-01-26] MEDS ORDERED: Unna Boot TOP ONE (13:11)
--- NOTE | 2018-01-26 13:57 | CP.PCM.PN ---
Subjective - Date & Time of Evaluation Date of Evaluation: 01/26/18 Time of Evaluation: 13:56 - Subjective Subjective: Podiatry progress note for Dr. Aguilar 72 year old female seen at bedside with Dr. Aguilar in TCU. States the Diet TVa's boots are working for her. States she still has some pain on the left lower extremity but not any on the right. She denies N/V/F/C/SOB/CP and has no other pedal complaints at this time. Objective - Vital Signs/Intake and Output Vital Signs (last 24 hours): Temp Pulse Resp BP Pulse Ox 97.7 F 18 L 18 170/84 H 96 01/25/18 18:10 01/25/18 18:10 01/25/18 18:10 01/26/18 10:17 01/25/18 18:10 - Medications Medications: Current Medications Acetaminophen (Tylenol 325mg Tab) 650 mg PO Q6H PRN PRN Reason: Pain, moderate (4-7) Last Admin: 01/23/18 10:17 Dose: 650 mg Amlodipine Besylate (Norvasc) 10 mg PO DAILY REMA; Protocol Last Admin: 01/26/18 10:17 Dose: 10 mg - Labs Labs: 01/25/18 07:30 01/25/18 07:30 - Constitutional Appears: Well, Non-toxic, No Acute Distress - Extremities Exam Additional comments: Bilateral lower extremity exam: Vascular: dp/pt pulses are palpable b/l, CFT <3 secs x10, TG warm to warm, pitting edema pretibial +2, no erythema noted derm: left: superficial ulcer noted on the medial aspect of the distal leg with fibrogranular base - improved, no malodor, moderate active serous drainage, no probe to bone or tendon, no tracking or tunneling noted, no clinical signs of infection right: superficial ulcer noted on the medial aspect of the distal leg with fibrogranular base - improved, no malodor, mild active serous drainage, no probe to bone or tendon, no clical signs of infection no other open lesions noted neuro: grossly intact ortho: pain on palpation to the lower extremity L>R - Neurological Exam Neurological Exam: Alert, Awake, Oriented x3 - Psychiatric Exam Psychiatric exam: Normal Affect, Normal Mood Assessment and Plan - Assessment and Plan (Free Text) Assessment: 72 yo female seen at bedside for venous insufficiency and venous stasis ulcers on bilateral legs. Plan: patient seen and evaluated at bedside with Dr. Aguilar chart, labs and vitals reviewed; afebrile and absent leukocytosis bilateral legs cleansed with saline and pat dry with gauze, dressed with sorbact, unna boots, and coban Patient to keep b/l LE elevated at all times Venous ultrasound ordered; no DVT arterial ultrasound ordered; NILDA/PVR normal at rest Wound cultures taken from the left lower extremity; pseudomonas aeruginas Patient stable for discharge: patient will follow up with Dr. Aguilar in wound care center within a week of discharge podiatry will continue to monitor the patient while in house
--- NOTE | 2018-01-26 19:28 | CP.PCM.PN ---
Subjective - Date & Time of Evaluation Date of Evaluation: 01/26/18 Time of Evaluation: 09:50 - Subjective Subjective: No fevers, not in distress, no pain in the lower extremities. Objective - Vital Signs/Intake and Output Vital Signs (last 24 hours): Temp Pulse Resp BP Pulse Ox 97.7 F 18 L 18 170/84 H 96 01/25/18 18:10 01/25/18 18:10 01/25/18 18:10 01/26/18 10:17 01/25/18 18:10 - Labs Labs: 01/25/18 07:30 01/25/18 07:30 - Constitutional Appears: Non-toxic, No Acute Distress - Head Exam Head Exam: NORMAL INSPECTION - Respiratory Exam Respiratory Exam: Decreased Breath Sounds - Cardiovascular Exam Cardiovascular Exam: +S1, +S2 - GI/Abdominal Exam GI & Abdominal Exam: Soft. absent: Tenderness - Extremities Exam Additional comments: both legs with dressings in place Assessment and Plan - Assessment and Plan (Free Text) Plan: Assessment S/P left ankle cellulitis with Pseudomonas chronic renal failure CAD CVA HTN Plan continue to monitor off antibiotics since she is at risk for infections
== END 2018-01-26 16:12 | disposition home or self-care (01) | DRG 603 ==
LOC: TRCU 12:12
PROVIDERS: ADMIT Family Medicine; ATTEND Family Medicine
PROC: F08Z1FZ Dressing Techniques Treatment using Assistive, Adaptive, Supportive or Protective Equipment (ICD-10-PCS; 2018-01-20)
PROC: F07Z9FZ Gait Training/Functional Ambulation Treatment using Assistive, Adaptive, Supportive or Protective Equipment (ICD-10-PCS; principal; 2018-01-21)
PROC: F07L6YZ Therapeutic Exercise Treatment of Musculoskeletal System - Lower Back / Lower Extremity using Other Equipment (ICD-10-PCS; 2018-01-21)
PROC: F07Z5ZZ Bed Mobility Treatment (ICD-10-PCS; 2018-01-21)
PROC: F07Z8FZ Transfer Training Treatment using Assistive, Adaptive, Supportive or Protective Equipment (ICD-10-PCS; 2018-01-21)
PROC: F08Z2ZZ Grooming/Personal Hygiene Treatment (ICD-10-PCS; 2018-01-22)
DX: L03.115 Cellulitis of right lower limb (principal); L97.919 Non-pressure chronic ulcer of unspecified part of right lower leg with unspecified severity; L97.929 Non-pressure chronic ulcer of unspecified part of left lower leg with unspecified severity; L03.116 Cellulitis of left lower limb; B96.5 Pseudomonas (aeruginosa) (mallei) (pseudomallei) as the cause of diseases classified elsewhere; I12.9 Hypertensive chronic kidney disease with stage 1 through stage 4 chronic kidney disease, or unspecified chronic kidney disease; N18.9 Chronic kidney disease, unspecified; I87.2 Venous insufficiency (chronic) (peripheral); E78.00 Pure hypercholesterolemia, unspecified; E78.5 Hyperlipidemia, unspecified; I25.10 Atherosclerotic heart disease of native coronary artery without angina pectoris; Z88.0 Allergy status to penicillin; Z86.73 Personal history of transient ischemic attack (TIA), and cerebral infarction without residual deficits